=== PATIENT | male | born 1950 | race Caucasian/White ===

== ENCOUNTER 2019-04-13 09:11 | Emergency (ER) | payer OTHER, BC ==
--- NOTE | 2019-04-13 09:49 | ER ---
Nurse's Notes [facility] Name: Prakash Hernández Age: 68 yrs Sex: Male : 1950 Arrival Date: 04/13/2019 Time: 09:13 Bed 12 Private MD: Diagnosis: Encounter for removal of sutures Presentation: 04/13 09:25 Presenting complaint: Sutures to chin 04/02, here for removal. Transition of care: hb Transition of care: patient was not received from another setting of care. Onset of symptoms was April 02, 2019. Risk Assessment: Do you want to hurt yourself or someone else? Patient reports no desire to harm self or others. Initial Sepsis Screen: Does the patient meet any 2 criteria? No. Patient's initial sepsis screen is negative. Does the patient have a suspected source of infection? No. Patient's initial sepsis screen is negative. Care prior to arrival: None. 09:25 Method Of Arrival: Ambulatory hb 09:25 Acuity: KUSH 4 hb Historical: - Allergies: : No Known Allergies; hb - Home Meds: : Coumadin Oral [Active]; hb - PMHx: 09: Hyperlipidemia; Hypertension; Myocardial infarction; prostatectomy; hb - PSHx: 09: pacemaker; hb - Immunization history:: Adult Immunizations up to date. - Social history:: Smoking status: Patient/guardian denies using tobacco. - Ebola Screening: : No symptoms or risks identified at this time. - Family history:: not pertinent. Screenin:29 Abuse screen: Denies threats or abuse. Denies injuries from another. Nutritional ss screening: No deficits noted. Tuberculosis screening: Never had TB. Fall Risk None identified. Assessment: 09:30 General: Appears in no apparent distress. comfortable. Pain: Denies pain. Neuro: Level ss of Consciousness is awake, alert, obeys commands. Cardiovascular: Capillary refill < 3 seconds is brisk in bilateral fingers. Respiratory: Airway is patent Respiratory effort is even, unlabored, Respiratory pattern is regular, symmetrical. EENT: Oral mucosa is moist. Derm: Skin is intact, is healthy with good turgor, Skin is pink, warm \T\ dry. normal. Musculoskeletal: Circulation, motion, and sensation intact. Range of motion: intact in all extremities. Vital Signs: :26 BP 114 / 74; Pulse 84; Resp 16; Temp 97.4; Pulse Ox 100% ; Weight 112.49 kg; Height 6 hb ft. 2 in. (187.96 cm); Pain 0/10; 09:26 Body Mass Index 31.84 (112.49 kg, 187.96 cm) hb ED Course: 09:13 Patient arrived in ED. as 09:26 Triage completed. hb 09:26 Arm band placed on. hb 09:28 Wellington Franco MD is Attending Physician. [facility] 09:29 Pamela Moreno, RN is Primary Nurse. 09:29 Patient has correct armband on for positive identification. Bed in low position. Call ss light in reach. 10:29 No provider procedures requiring assistance completed. Patient did not have IV access ss during this emergency room visit. Removal of Removed sutures from chin Suture site is well healed Patient tolerated well. Administered Medications: No medications were administered Outcome: 09:48 Discharge ordered by . [facility] 10:29 Discharged to home ambulatory. 10:29 Condition: good 10:29 Discharge instructions given to patient, Instructed on discharge instructions, follow up and referral plans. wound care, Demonstrated understanding of instructions, follow-up care, wound care. 10:46 Patient left the ED. hb Signatures: Wellington Franco MD MD cha Martinez, Amelia as Pamela Moreno, REFUGIO RN Ruby Jiemnez RN RN
--- NOTE | 2019-04-13 09:50 | EDPHYS ---
Physician Documentation [facility] Name: Prakash Hernández Age: 68 yrs Sex: Male : 1950 Arrival Date: 04/13/2019 Time: 09:13 Bed 12 Private MD: Wellington Clarke HPI: 04/13 09:45 This 68 yrs old Male presents to ER via Ambulatory with complaints of Suture asad Removal. 09:45 The patient has sutures on the chin. Previous treatment: The patient was initially asad treated 10 day(s) ago. Sutures/warren progress: The patient has no c/o's. The wound is well-healing with no redness, swelling, discharge, or dehiscence reported. The patient has not experienced similar symptoms in the past. Historical: - Allergies: : No Known Allergies; hb - Home Meds: : Coumadin Oral [Active]; hb - PMHx: :26 Hyperlipidemia; Hypertension; Myocardial infarction; prostatectomy; hb - PSHx: 09: pacemaker; hb - Immunization history:: Adult Immunizations up to date. - Social history:: Smoking status: Patient/guardian denies using tobacco. - Ebola Screening: : No symptoms or risks identified at this time. - Family history:: not pertinent. ROS: 09:45 Constitutional: Negative for fever, chills, and weight loss, Eyes: Negative for injury, asad pain, redness, and discharge, ENT: Negative for injury, pain, and discharge, Neck: Negative for injury, pain, and swelling, Cardiovascular: Negative for chest pain, palpitations, and edema, Respiratory: Negative for shortness of breath, cough, wheezing, and pleuritic chest pain, Abdomen/GI: Negative for abdominal pain, nausea, vomiting, diarrhea, and constipation, Back: Negative for injury and pain, : Negative for injury, bleeding, discharge, and swelling, MS/Extremity: Negative for injury and deformity, Neuro: Negative for headache, weakness, numbness, tingling, and seizure, Psych: Negative for depression, anxiety, suicide ideation, homicidal ideation, and hallucinations, Endocrine: Negative for neck swelling, polydipsia, polyuria, polyphagia, and marked weight changes, Hematologic/Lymphatic: Negative for swollen nodes, abnormal bleeding, and unusual bruising. 09:45 Skin: Positive for laceration(s). Exam: 09:45 Constitutional: This is a well developed, well nourished patient who is awake, alert, asad and in no acute distress. Head/Face: Normocephalic, atraumatic. Eyes: Pupils equal round and reactive to light, extra-ocular motions intact. Lids and lashes normal. Conjunctiva and sclera are non-icteric and not injected. Cornea within normal limits. Periorbital areas with no swelling, redness, or edema. ENT: Nares patent. No nasal discharge, no septal abnormalities noted. Tympanic membranes are normal and external auditory canals are clear. Oropharynx with no redness, swelling, or masses, exudates, or evidence of obstruction, uvula midline. Mucous membranes moist. Neck: Trachea midline, no thyromegaly or masses palpated, and no cervical lymphadenopathy. Supple, full range of motion without nuchal rigidity, or vertebral point tenderness. No Meningismus. Chest/axilla: Normal chest wall appearance and motion. Nontender with no deformity. No lesions are appreciated. Cardiovascular: Regular rate and rhythm with a normal S1 and S2. No gallops, murmurs, or rubs. Normal PMI, no JVD. No pulse deficits. Respiratory: Lungs have equal breath sounds bilaterally, clear to auscultation and percussion. No rales, rhonchi or wheezes noted. No increased work of breathing, no retractions or nasal flaring. Abdomen/GI: Soft, non-tender, with normal bowel sounds. No distension or tympany. No guarding or rebound. No evidence of tenderness throughout. Back: No spinal tenderness. No costovertebral tenderness. Full range of motion. MS/ Extremity: Pulses equal, no cyanosis. Neurovascular intact. Full, normal range of motion. Neuro: Awake and alert, GCS 15, oriented to person, place, time, and situation. Cranial nerves II-XII grossly intact. Motor strength 5/5 in all extremities. Sensory grossly intact. Cerebellar exam normal. Normal gait. Psych: Awake, alert, with orientation to person, place and time. Behavior, mood, and affect are within normal limits. 09:45 Skin: Appearance: normal except for affected area, Wound recheck: Suture laceration closure: the wound is healing well, no evidence of dehiscence, no drainage, no erythema, no swelling. Vital Signs: 09:26 BP 114 / 74; Pulse 84; Resp 16; Temp 97.4; Pulse Ox 100% ; Weight 112.49 kg; Height 6 hb ft. 2 in. (187.96 cm); Pain 0/10; 09:26 Body Mass Index 31.84 (112.49 kg, 187.96 cm) hb MDM: 09:28 Patient medically screened. [facility] 09:47 Data reviewed: vital signs, nurses notes. [facility] 04/13 09:45 Order name: Suture Removal; Complete Time: 10:13 [facility] Administered Medications: No medications were administered Disposition: 04/13/19 09:48 Discharged to Home. Impression: Encounter for removal of sutures. - Condition is Stable. - Discharge Instructions: Suture Removal, Care After. - Medication Reconciliation Form, Thank You Letter, Antibiotic Education, Prescription Opioid Use form. - Follow up: Private Physician; When: 5 - 6 days; Reason: Recheck today's complaints, Continuance of care, Re-evaluation by your physician. - Problem is new. - Symptoms have improved. Signatures: Wellington Franco MD MD cha Baxter, Heather RN RN Corrections: (The following items were deleted from the chart) 10:46 09:48 04/13/2019 09:48 Discharged to Home. Impression: Encounter for removal of hb sutures. Condition is Stable. Forms are Medication Reconciliation Form, Thank You Letter, Antibiotic Education, Prescription Opioid Use. Follow up: Private Physician; When: 5 - 6 days; Reason: Recheck today's complaints, Continuance of care, Re-evaluation by your physician. Problem is new. Symptoms have improved. [facility]
== END 2019-04-13 10:46 | disposition home or self-care (01) ==
LOC: ER 09:11
DX: Z48.02 Encounter for removal of sutures (principal); Z95.0 Presence of cardiac pacemaker; Z86.73 Personal history of transient ischemic attack (TIA), and cerebral infarction without residual deficits
CPT/HCPCS: 99281

== ENCOUNTER 2019-07-28 16:14 | Emergency (ER) | payer OTHER, BC ==
[2019-07-28 17:23] LABS: Absolute Lymphocytes (CBC) 1.3 K/uL (0.7-4.9); Basophils % 0.3 % (0-1.3); Hematocrit 38.4 % (39.6-49.0); Lymphocytes % 20.6 % (15.3-44.8); MPV 9.2 fL (7.6-11.3)
[2019-07-28 17:37] LABS: Albumin 3.3 g/dL (3.4-5.0); Bilirubin Direct 0.2 mg/dL (0-0.2); Bilirubin Total 0.4 mg/dL (0.2-1.0); Potassium 4.1 mmol/L (3.5-5.1); Protein, Total 7.2 g/dL (6.4-8.2)
[2019-07-28 17:43] LABS: Blood Morphology Comment NOT SEEN (NOT SEEN); Platelet Estimate ADEQ; Urine White Blood Cell Casts OK
--- NOTE | 2019-07-28 17:43 | ER ---
Nurse's Notes [facility] Name: Prakash Hernández Age: 69 yrs Sex: Male : 1950 Arrival Date: 07/28/2019 Time: 16:16 Bed 14 Private MD: Diagnosis: Dizziness and giddiness Presentation: 07/28 16:25 Presenting complaint: Intermittent dizziness x 2 weeks. Pt stated "I take Lasix and hb this always happens when my potassium is low.". Transition of care: patient was not received from another setting of care. Onset of symptoms was July 28, 2019. Risk Assessment: Do you want to hurt yourself or someone else? Patient reports no desire to harm self or others. Care prior to arrival: None. 16:25 Method Of Arrival: Ambulatory 16:25 Acuity: KUSH 3 hb 16:45 Initial Sepsis Screen: Does the patient meet any 2 criteria? No. Patient's initial aa5 sepsis screen is negative. Does the patient have a suspected source of infection? No. Patient's initial sepsis screen is negative. Historical: - Allergies: 16:28 No Known Allergies; hb - Home Meds: 16:28 Coumadin 3 mg oral tab [Active]; trazodone 50 mg Oral tab 2 tabs nightly [Active]; hb furosemide 40 mg Oral tab 2 times per day [Active]; atorvastatin 40 mg oral tab 1 tab once daily [Active]; potassium chloride 20 mEq Oral TbER 1 tab 2 times per day [Active]; - PMHx: 16:28 Hyperlipidemia; Hypertension; Myocardial infarction; prostatectomy; Prostate CA; hb - PSHx: 16:28 pacemaker; Prostate; hb - Immunization history:: Adult Immunizations up to date. - Social history:: Smoking status: Patient/guardian denies using tobacco. - Ebola Screening: : No symptoms or risks identified at this time. Screenin:00 Abuse screen: Denies threats or abuse. Nutritional screening: No deficits noted. aa5 Tuberculosis screening: No symptoms or risk factors identified. Fall Risk None identified. Assessment: 16:45 General: Appears comfortable, Behavior is calm, cooperative. Pain: Denies pain. Neuro: aa5 Level of Consciousness is awake, alert, obeys commands, Oriented to person, place, time, situation, Industrial Health Engineer are equal bilaterally Moves all extremities. Gait is steady, Speech is normal, Facial symmetry appears normal, Pupils are PERRLA, Reports Reports intermittent dizziness, pt denies dizziness at this time. . Cardiovascular: Heart tones S1 S2 present Rhythm is regular. Respiratory: Airway is patent Respiratory effort is even, unlabored, Respiratory pattern is regular, symmetrical, Breath sounds are clear bilaterally. Denies shortness of breath. GI: No signs and/or symptoms were reported involving the gastrointestinal system. : No signs and/or symptoms were reported regarding the genitourinary system. EENT: No signs and/or symptoms were reported regarding the EENT system. Derm: Skin is pink, warm \\T\\ dry. Musculoskeletal: Range of motion: intact in all extremities. 17:55 Reassessment: Patient is alert, oriented x 3, equal unlabored respirations, skin aa5 warm/dry/pink. Patient denies pain at this time. Vital Signs: 16:28 BP 127 / 75; Pulse 80; Resp 16; Temp 98.4; Pulse Ox 99% on R/A; Weight 117.93 kg; hb Height 6 ft. 2 in. (187.96 cm); Pain 0/10; 17:15 BP 139 / 78; Pulse 82; Resp 18 S; Temp 98.0(TE); Pulse Ox 99% on R/A; Pain 0/10; aa5 16:28 Body Mass Index 33.38 (117.93 kg, 187.96 cm) hb NIH Stroke Scale Scores: 16:52 NIHSS Score: 0 [facility] ED Course: 16:16 Patient arrived in ED. as 16:25 Triage completed. hb 16:28 Arm band placed on. 16:35 Castillo Glover PA is PHCP. jr8 16:35 Evan Patel MD is Attending Physician. jr8 16:45 Patient has correct armband on for positive identification. Bed in low position. Call aa5 light in reach. Side rails up X 1. 16:49 Maya Rivas, REFUGIO is Primary Nurse. aa5 17:00 No provider procedures requiring assistance completed. Inserted saline lock: 20 gauge aa5 in right antecubital area, using aseptic technique. Blood collected. 17:08 EKG done, by ED staff, reviewed by Castillo SUMMERS. 3 17:55 IV discontinued, intact, bleeding controlled, No redness/swelling at site. Pressure iris5 dressing applied. Administered Medications: No medications were administered Outcome: 17:41 Discharge ordered by . ian 17:55 Discharged to home ambulatory. [place] 17:55 Condition: good 17:55 Discharge instructions given to patient, Instructed on discharge instructions, follow up and referral plans. Demonstrated understanding of instructions, follow-up care. 17:58 Patient left the ED. NIH Stroke Scale - NIH Stroke Score Date: 07/28/2019 Time: 16:52 Total Score = 0 1a. Level of Consciousness (LOC) - 0(Alert) 1b. Level of Consciousness (LOC) (Year \\T\\ Age) - 0(Both) 1c. LOC Commands (Open \\T\\ Closes Eyes/Ruby On Rails Consultant) - 0(Both) 2. Best Gaze (Lateral Gaze Paresis) - 0(Normal) 3. Visual Field Loss - 0(No visual loss) 4. Facial Palsy - 0(Normal) 5a. Left Arm: Motor (10-second hold) - 0(No drift) 5b. Right Arm: Motor (10-second hold) - 0(No drift) 6a. Left Leg: Motor (5-second hold - always test supine) - 0(No drift) 6b. Right Leg: Motor (5-second hold - always test supine) - 0(No drift) 7. Limb Ataxia (finger/nose \\T\\ heel/wiggins - test with eyes open) - 0(Absent) 8. Sensory Loss (pinprick arms/legs/face) - 0(Normal) 9. Best Language: Aphasia (description/naming/reading) - 0(No aphasia) 10. Dysarthria (speech clarity - read or repeat words) - 0(Normal) 11. Extinction and Inattention (visual/tactile/auditory/spatial/personal) - 0(No abnormality) Initials: ian Signatures: Cecile Nuno Audri, RN RN aa5 Castillo Glover PA PA jr8 Ruby Jimenez RN RN Kathy Francis [facility]
--- NOTE | 2019-07-28 17:43 | EDPHYS ---
Physician Documentation [facility] Name: Prakash Hernández Age: 69 yrs Sex: Male : 1950 Arrival Date: 07/28/2019 Time: 16:16 Bed 14 Private MD: ED Physician Evan Patel HPI: 07/28 16:50 This 69 yrs old Male presents to ER via Ambulatory with complaints of jr8 Dizziness. 16:50 The patient presents with dizziness, feeling off balance. Onset: The symptoms/episode jr8 began/occurred acutely, today. Context: occurred at home, occurred while the patient was at rest. Modifying factors: The symptoms are alleviated by nothing, the symptoms are aggravated by changing position. Associated signs and symptoms: The patient has no apparent associated signs or symptoms. Severity of symptoms: At their worst the symptoms were mild in the emergency department the symptoms have resolved. Patient's baseline: Neuro: alert and fully oriented, Motor: no deficits, Ambulation: walks without assistance, Speech: normal. The patient has experienced a previous episode. The patient has not recently seen a physician. Patient stated that he has had this in the past. Stated that his potassium was low at the time. Had another episode today. Called PCP who told him to come and get blood work done . Historical: - Allergies: 16:28 No Known Allergies; hb - Home Meds: 16:28 Coumadin 3 mg oral tab [Active]; trazodone 50 mg Oral tab 2 tabs nightly [Active]; hb furosemide 40 mg Oral tab 2 times per day [Active]; atorvastatin 40 mg oral tab 1 tab once daily [Active]; potassium chloride 20 mEq Oral TbER 1 tab 2 times per day [Active]; - PMHx: 16:28 Hyperlipidemia; Hypertension; Myocardial infarction; prostatectomy; Prostate CA; hb - PSHx: 16:28 pacemaker; Prostate; hb - Immunization history:: Adult Immunizations up to date. - Social history:: Smoking status: Patient/guardian denies using tobacco. - Ebola Screening: : No symptoms or risks identified at this time. ROS: 16:52 Eyes: Negative for injury, pain, redness, and discharge, ENT: Negative for injury, jr8 pain, and discharge, Neck: Negative for injury, pain, and swelling, Cardiovascular: Negative for chest pain, palpitations, and edema, Respiratory: Negative for shortness of breath, cough, wheezing, and pleuritic chest pain, Abdomen/GI: Negative for abdominal pain, nausea, vomiting, diarrhea, and constipation, Back: Negative for injury and pain, MS/Extremity: Negative for injury and deformity, Skin: Negative for injury, rash, and discoloration. 16:52 Neuro: Positive for dizziness, Negative for altered mental status, loss of consciousness, seizure activity, speech changes, syncope, near syncope, visual changes, weakness. Exam: 16:52 Eyes: Pupils equal round and reactive to light, extra-ocular motions intact. Lids and jr8 lashes normal. Conjunctiva and sclera are non-icteric and not injected. Cornea within normal limits. Periorbital areas with no swelling, redness, or edema. ENT: Nares patent. No nasal discharge, no septal abnormalities noted. Tympanic membranes are normal and external auditory canals are clear. Oropharynx with no redness, swelling, or masses, exudates, or evidence of obstruction, uvula midline. Mucous membranes moist. Neck: Trachea midline, no thyromegaly or masses palpated, and no cervical lymphadenopathy. Supple, full range of motion without nuchal rigidity, or vertebral point tenderness. No Meningismus. Cardiovascular: Regular rate and rhythm with a normal S1 and S2. No gallops, murmurs, or rubs. Normal PMI, no JVD. No pulse deficits. Respiratory: Lungs have equal breath sounds bilaterally, clear to auscultation and percussion. No rales, rhonchi or wheezes noted. No increased work of breathing, no retractions or nasal flaring. Abdomen/GI: Soft, non-tender, with normal bowel sounds. No distension or tympany. No guarding or rebound. No evidence of tenderness throughout. Back: No spinal tenderness. No costovertebral tenderness. Full range of motion. Skin: Warm, dry with normal turgor. Normal color with no rashes, no lesions, and no evidence of cellulitis. MS/ Extremity: Pulses equal, no cyanosis. Neurovascular intact. Full, normal range of motion. Neuro: Awake and alert, GCS 15, oriented to person, place, time, and situation. Cranial nerves II-XII grossly intact. Motor strength 5/5 in all extremities. Sensory grossly intact. Cerebellar exam normal. Normal gait. Vital Signs: 16:28 BP 127 / 75; Pulse 80; Resp 16; Temp 98.4; Pulse Ox 99% on R/A; Weight 117.93 kg; hb Height 6 ft. 2 in. (187.96 cm); Pain 0/10; 17:15 BP 139 / 78; Pulse 82; Resp 18 S; Temp 98.0(TE); Pulse Ox 99% on R/A; Pain 0/10; aa5 16:28 Body Mass Index 33.38 (117.93 kg, 187.96 cm) hb NIH Stroke Scale Scores: 16:52 NIHSS Score: 0 8 MDM: 16:41 Patient medically screened. jr8 17:41 Data reviewed: vital signs, nurses notes, lab test result(s), EKG, and as a result, I jr8 will discharge patient. Data interpreted: Pulse oximetry: on room air is 99 %. Interpretation: normal. Counseling: I had a detailed discussion with the patient and/or guardian regarding: the historical points, exam findings, and any diagnostic results supporting the discharge/admit diagnosis, lab results, the need for outpatient follow up, a family practitioner, to return to the emergency department if symptoms worsen or persist or if there are any questions or concerns that arise at home. 07/28 16:48 Order name: CBC with Diff; Complete Time: 17:46 07/28 16:48 Order name: Basic Metabolic Panel; Complete Time: 17:41 07/28 16:48 Order name: LFT's; Complete Time: 17:41 07/28 16:48 Order name: EKG; Complete Time: 16:48 8 07/28 16:52 Order name: Magnesium; Complete Time: 17:41 07/28 17:25 Order name: CBC Smear Scan; Complete Time: 17:46 EDMS 07/28 16:48 Order name: IV; Complete Time: 17:09 07/28 16:48 Order name: EKG - Nurse/Tech; Complete Time: 17:09 Administered Medications: No medications were administered Disposition: 07/28/19 17:41 Discharged to Home. Impression: Dizziness and giddiness. - Condition is Stable. - Discharge Instructions: Dizziness. - Medication Reconciliation Form, Thank You Letter, Antibiotic Education, Prescription Opioid Use form. - Follow up: Private Physician; When: 2 - 3 days; Reason: Recheck today's complaints, Continuance of care, Re-evaluation by your physician. - Problem is new. - Symptoms have improved. NIH Stroke Scale - NIH Stroke Score Date: 07/28/2019 Time: 16:52 Total Score = 0 1a. Level of Consciousness (LOC) - 0(Alert) 1b. Level of Consciousness (LOC) (Year \T\ Age) - 0(Both) 1c. LOC Commands (Open \T\ Closes Eyes/Information Security Architect) - 0(Both) 2. Best Gaze (Lateral Gaze Paresis) - 0(Normal) 3. Visual Field Loss - 0(No visual loss) 4. Facial Palsy - 0(Normal) 5a. Left Arm: Motor (10-second hold) - 0(No drift) 5b. Right Arm: Motor (10-second hold) - 0(No drift) 6a. Left Leg: Motor (5-second hold - always test supine) - 0(No drift) 6b. Right Leg: Motor (5-second hold - always test supine) - 0(No drift) 7. Limb Ataxia (finger/nose \T\ heel/wiggins - test with eyes open) - 0(Absent) 8. Sensory Loss (pinprick arms/legs/face) - 0(Normal) 9. Best Language: Aphasia (description/naming/reading) - 0(No aphasia) 10. Dysarthria (speech clarity - read or repeat words) - 0(Normal) 11. Extinction and Inattention (visual/tactile/auditory/spatial/personal) - 0(No abnormality) Initials: jrSana Addendum: 07/29/2019 21:00 Co-signature as Attending Physician, Evan Patel MD I agree with the kdr assessment and plan of care. Signatures: Dispatcher [employer] EDMS Evan Patel MD MD [facility] Castillo Glover PA PA jr8 Ruby Jimenez RN RN hb Corrections: (The following items were deleted from the chart) 07/28 17:58 17:41 07/28/2019 17:41 Discharged to Home. Impression: Dizziness and giddiness. hb Condition is Stable. Forms are Medication Reconciliation Form, Thank You Letter, Antibiotic Education, Prescription Opioid Use. Follow up: Private Physician; When: 2 - 3 days; Reason: Recheck today's complaints, Continuance of care, Re-evaluation by your physician. Problem is new. Symptoms have improved. jr8
[2019-07-28 21:12] VITALS: BP 127/75; TEMP 98.4; O2SAT 99
--- NOTE | 2019-07-29 12:44 | EKG ---
Test Date: 2019-07-28 Test Time: 17:08:16 Wine Pasteurizer: ASHLY MEASUREMENT RESULTS: Intervals: Rate: 83 AR: QRSD: 168 QT: 438 QTc: 514 [place]: P: AR: QRS: 220 T: 30 INTERPRETIVE STATEMENTS: ventricular paced rhythm Right bundle branch block Possible Lateral infarct, age undetermined Abnormal ECG No previous ECG available for comparison Electronically Signed On 07-29-19 12:42:20 FIRER LOW PRESSURE by Jose Luis Gant
== END 2019-07-28 17:58 | disposition home or self-care (01) ==
LOC: ER 16:14
DX: R42 Dizziness and giddiness (principal); I10 Essential (primary) hypertension; E78.5 Hyperlipidemia, unspecified; I25.2 Old myocardial infarction; Z85.46 Personal history of malignant neoplasm of prostate; Z90.79 Acquired absence of other genital organ(s); Z95.0 Presence of cardiac pacemaker
CPT/HCPCS: 36415; 80048; 80076; 83735; 85025; 93005; 99283